=== PATIENT | male | born 1995 | race Caucasian/White ===

== ENCOUNTER 2018-06-04 16:17 | Emergency (ER) | payer OTHER ==
[~2018-06-04] VITALS: Ht 167.6 cm; Wt 88.5 kg
[2018-06-04] MEDS ORDERED: CLARITIN-D 121 EAC1 PO (16:48)
[2018-06-04] MEDS ORDERED: AFRIN30 ML NASAL (16:48)
[2018-06-04 17:15] VITALS: BP 116/77
== END 2018-06-04 17:15 | disposition home or self-care (01) ==
LOC: ER 16:17
DX: H65.93 Unspecified nonsuppurative otitis media, bilateral (principal)